=== PATIENT | female | born 1965 | race Caucasian/White ===

== ENCOUNTER 2016-12-21 05:23 | Emergency (ER) | payer SELFPAY ==
[~2016-12-21] VITALS: Ht 157.5 cm; Wt 84.0 kg
[2016-12-21 05:34] VITALS: Ht 157.5 cm; Wt 84.0 kg
--- NOTE | 2016-12-21 05:34 | ERD ---
ER Documentation Chief Complaint Date/Time DATE: 12/21/16 TIME: 05:33 Chief Complaint HPI This is a very pleasant 51-year-old female brought in by paramedics for alcohol intoxication. No trauma noted. Patient is alert and talking. Family at bedside. Denies suicidal homicidal ideation. ROS All systems reviewed and are negative except as per history of present illness. Physical Exam Physical Exam Const: [] Head: Atraumatic Eyes: Normal Conjunctiva ENT: Normal External Ears, Nose and Mouth. Neck: Full range of motion..~ No meningismus. Resp: Clear to auscultation bilaterally Cardio: Regular rate and rhythm, no murmurs Abd: Soft, non tender, non distended. Normal bowel sounds Skin: No petechiae or rashes Back: No midline or flank tenderness Ext: No cyanosis, or edema Neur: Awake and alert Psych: Normal Mood and Affect Procedures/MDM Medical decision-making: This 51-year-old female comes in with acute alcohol intoxication. At this point is clinically stable for outpatient management. Patient will be discharged home in care of family. Departure Diagnosis: Primary Impression: Alcoholic intoxication Complication of substance-induced condition: uncomplicated Qualified Code: F10.120 - Alcoholic intoxication, uncomplicated Condition: Stable Patient Instructions: Alcohol Abuse IFTIKHAR KOCH Dec 21, 2016 05:34
== END 2016-12-21 06:10 | disposition home or self-care (01) ==
LOC: E/R 05:23
DX: F10.120 Alcohol abuse with intoxication, uncomplicated (principal); E11.9 Type 2 diabetes mellitus without complications
CPT/HCPCS: 99283